=== PATIENT | female | born 1955 | race Caucasian/White ===

== ENCOUNTER 2023-11-14 11:31 | Emergency (ER) | payer MEDICARE, BC, SELFPAY ==
[2023-11-14 11:35] VITALS: BP 188/99
[2023-11-14 14:43] VITALS: BP 161/110
[2023-11-14 14:57] VITALS: BP 177/97
--- NOTE | 2023-11-14 15:04 | ED.GENMED ---
History of Present Illness
General
Chief Complaint: Blood Pressure Problem
Source: patient
Exam Limitations: none
Time Seen by Provider: 11/14/23 14:52
Nursing documentation reviewed up to this point in time: agreed with
Travel History
Have you had any contact with someone who has COVID-19?: No
Do you have any symptoms of coronavirus? Fever > 100 degrees, chills, cough, shortness of breath, sore throat, loss of taste or smell, muscle aches, or headache?: No
History of Present Illness
History of Present Illness:
Patient to ED for BP evlauation. She has a history of hypertension, takes Lisinopril 20mg daily and reports compliance. Over the past week she has been waking with a mild headache. She was seen by PCP last week and reports BP was elevated then.
Yesterday she felt woozy and took her BP. States its was 160/80or 90. She was seen by PCP again today. BP 190/90. Advised to come to ED for eval. She denies any dizziness or blurred vision. No cp/pressure, SOB. No recent illness. Brought
self to ED for eval.
Past History
Past History
ED Past Medical History: Cancer (breast - chemo/radiation), HTN, Hypercholesterolemia and Psychiatric (anxiety)
ED Past Surgical History: Other (lumpectomy,, mastectomy)
Social History
Tobacco: Non-smoker
Alcohol: Daily (1-2 beers)
Drug: None
Review of Systems
Review of Systems
Allergies reviewed?: Yes
All Other Systems: ROS reviewed and negative except as documented in HPI and ROS
Constitutional: Reports no symptoms
EENT: Reports no symptoms
Respiratory: Reports no symptoms
Cardiac: Reports no symptoms
ABD/GI: Reports no symptoms
: Reports no symptoms
Musculoskeletal: Reports no symptoms
Skin: Reports no symptoms
Neurological: Reports headache (daily morning CRISTINA)
Psychiatric: Reports no symptoms
Phy Exam
General Physical Exam
General Presentation: well appearing and no apparent distress
General age: appears stated age
General Skin: warm and dry
General Habitus: normal
General Mental: alert
Cardiovascular Exam
Cardiovascular Exam: regular rate/rhythm and no edema
Pulmonary Exam
Pulmonary Exam: lungs clear and no respiratory distress
Musculoskeletal Exam
Musculoskeletal Exam: full ROM and neuro vasc intact
Skin Exam
Skin Exam: normal color, warm/dry and no rash
Psychiatric Exam
Psychiatric Exam: normal mood/affect
Course
Orders/Labs/Results
Orders:
Orders
11/14/23 11:37
Electrocardiogram (*1) Urgent
Reason for Study: Hypertension, Benign
11/14/23 11:38
EKG- Treatment ONCE
11/14/23 15:17
Complete Blood Count/With Diff Urgent
Comprehensive Metabolic Panel Urgent
11/14/23 15:56
Lisinopril [Zestril] 20 mg PO NOW STA
Abnormal Lab Results
11/14/23
15:17
Hgb 11.8 L g/dL
(12.0-16.0)
MCH 25.4 L pg
(27.0-31.0)
MCHC 31.3 L g/dL
(33.0-37.0)
RDW 15.9 H %
(11.5-14.5)
MPV 10.8 H fL
(7.4-10.4)
Abs Immat Gran (auto) 0.1 H 10^3/uL
(0-0.05)
Absolute Monos (auto) 0.7 H 10^3/uL
(0.1-0.6)
Immature Gran % 1.0 H %
(0-0.5)
Monocytes % 13.4 H %
(1.7-9.3)
Alkaline Phosphatase 131 H U/L
(38-126)
11/14/23 15:17
11/14/23 15:17
Vital Signs
Initial and Last Documented VS:
Initial Vital Signs
Temp Pulse Resp BP Pulse Ox
98.0 F 62 16 188/99 98
11/14/23 11:35 11/14/23 11:35 11/14/23 11:35 11/14/23 11:35 11/14/23 11:35
Last Documented Vital Signs
Temp Pulse Resp BP Pulse Ox
98.0 F 58 13 182/91 98
11/14/23 11:35 11/14/23 16:00 11/14/23 16:00 11/14/23 15:58 11/14/23 14:57
*EKG
Interpretation: normal
Comparison EKG: no comparison EKG present
Rate: normal
Rhythm: sinus
*Critical Care Note
Total Time (30-74mins, 75-104mins- exclusive of procedures): Not Applicable
Update Note
Update Note:
EKG, labs reviewed. BP continues to remain moderately elevated in ED. No associated symptoms while in dept. Given additional 20mg of lisinopril in dept. Will increase daily dose to 40mg starting tomorrow. She will continue to log her BP, given
parameters to hold increased dose and she is agreeable to plan.
ED Attending Note
-
Portions of this chart may have been created with voice recognition software.� Occasional wrong word or��sound alike� substitutions may have occurred due to the inherent limitations of voice recognition software.
Discharge Plan
Departure
Patient Disposition: Home (Routine Discharge)
Date of Disposition: 11/14/23
Time of Disposition: 16:01
Patient with high blood pressure during this ER visit?: No
Condition: Good
Covid-19: Not Applicable
Discharge Problem:
Elevated blood pressure reading
Instructions: High Blood Pressure (DC)
Prescriptions:
New
lisinopril 40 mg tablet
40 mg PO DAILY Qty: 30 0RF
Referrals:
Marisol Lay DO [Family Provider] - Follow up in 2-3 days
Interventions
Interventions:
*Risk Screen - Suicide Last Done: 11/14/23 14:40
*General Assessment Last Done: 11/14/23 14:40
*Neglect/Abuse Screening Last Done: 11/14/23 14:40
ED- Fall Risk Assessment Last Done: 11/14/23 14:19
*ED COVID-19 Vaccine History Last Done: 11/14/23 11:35
ED- Cardiac Assessment Last Done: 11/14/23 14:40
ED- Neurological Assessment Last Done: 11/14/23 14:40
ED- Pulmonary Assessment Last Done: 11/14/23 14:19
Discharge Date and Time
Print Language: TURKMEN
[2023-11-14 15:23] VITALS: BP 174/90
[2023-11-14 15:35] LABS: % Eosinophils 3.5 % (0-6); % Lymphocytes 30.8 % (20.5-51.1); % Monocytes 13.4 % (1.7-9.3); % Neutrophils 50.3 % (42.2-75.2); Absolute Basophils 0.1 10^3/uL (0-0.2); Absolute Eosinophils 0.2 10^3/uL (0-0.7); Absolute Immature Granulocytes 0.1 10^3/uL (0-0.05); Absolute Lymphocytes 1.5 10^3/uL (1.2-3.4); Absolute Monocytes 0.7 10^3/uL (0.1-0.6); Absolute Neutrophils 2.5 10^3/uL (1.4-6.5); Hematocrit 37.7 % (37.0-47.0); Hemoglobin 11.8 g/dL (12.0-16.0); Mean Corp Hgb Conc. 31.3 g/dL (33.0-37.0); Mean Corpuscular Hgb 25.4 pg (27.0-31.0); Mean Corpuscular Volume 81.3 fL (81.0-99.0); Mean Platelet Volume 10.8 fL (7.4-10.4); Nucleated Red Blood Cells % 0 %; Platelet Count 266 10^3/uL (130-400); Red Blood Cell Count 4.64 10^6/uL (4.20-5.40); Red Cell Dist. Width 15.9 % (11.5-14.5); White Blood Cell Count 4.9 10^3/uL (4.8-10.8)
[2023-11-14 15:46] LABS: ALT (SGPT) 22 U/L (0-35); AST (SGOT) 24 U/L (14-36); Albumin 4.2 g/dl (3.5-5.0); Alkaline Phosphatase 131 U/L (38-126); Blood Urea Nitrogen 15 mg/dl (7-17); Calcium 9.3 mg/dl (8.4-10.2); Carbon Dioxide 29 mmol/L (22-30); Chloride 101 mmol/L (98-107); Glucose 83 mg/dl (70-99); Potassium 4.2 mmol/L (3.5-5.1); Sodium 138 mmol/L (135-145); Total Bilirubin 0.3 mg/dl (0.2-1.3); eGFR > 60.00
[2023-11-14 15:58] VITALS: BP 182/91
[2023-11-14] MEDS: ZESTRIL 20 MG PO (15:59)
== END 2023-11-14 16:12 | disposition home or self-care (01) ==
LOC: EMR 11:31
PROVIDERS: Emergency Medicine; EMERGENCY PHYSICIAN Emergency Medicine; FAMILY PHYSICIAN Family Medicine
DX: I10 Essential (primary) hypertension (principal)
CPT/HCPCS: 99284; 80053; 85025; 93005

== ENCOUNTER → 2024-05-07 14:37 | Outpatient (REF) | payer MEDICARE, BC, SELFPAY | LOC: MRI 3T 14:37 | PROVIDERS: ATTENDING PHYSICIAN Surgery; FAMILY PHYSICIAN Family Medicine | DX: C50.912 Malignant neoplasm of unspecified site of left female breast (principal); N64.4 Mastodynia | CPT/HCPCS: 77049; A9585 ==

== ENCOUNTER 2024-08-19 11:35 | Emergency (ER) | payer MEDICARE, BC, SELFPAY ==
[2024-08-19 11:36] VITALS: BP 120/79
[2024-08-19 12:05] VITALS: BP 130/87; BMI 21.8
--- NOTE | 2024-08-19 12:06 | EDRN ---
Oleg DUMONT in room w/ pt at this time.
--- NOTE | 2024-08-19 12:22 | ED.GENMED ---
History of Present Illness
General
Chief Complaint: Musculo-Skeletal Complaint
Source: patient
Exam Limitations: none
Time Seen by Provider: 08/19/24 11:53
Nursing documentation reviewed up to this point in time: agreed with
History of Present Illness
History of Present Illness:
pt is a 69 y/o F h/o R ambrocio dominance
h/o HTN, HHYPOTHYROID, TIA, BREAST CA
mechanical trip and fall 4 days ago down about 2 steps and injured R thumb and struck L eye. pt had no LOC
she says she only has pain in the R thumb region
no wrist pain, forearm pain
denies headache, confusion, neck pain
denies that she was intoxicated
denies that she was assaulted
here for xray after talking to PCP
Past History
Past History
ED Past Medical History: Cancer (breast - chemo/radiation), HTN, Hypercholesterolemia and Psychiatric (anxiety)
ED Past Surgical History: Other (lumpectomy,, mastectomy)
Social History
Tobacco: Non-smoker
Alcohol: Daily (1-2 beers)
Drug: None
Review of Systems
Review of Systems
Allergies reviewed?: Yes
All Other Systems: Not applicable
Phy Exam
Physical Exam
Physical Exam:
GENERAL: Alert , in no apparent distress, comfortable at rest
HEAD: NCAT
face: ecechymois L periorbital region
nontender
CV: 2+ radial pulse
NEUROLOGICAL: Alert and oriented, no focal neuro deficits, , 5/5 strength, sensation intact, ambulation slight limp right leg
SKIN: Warm and dry, bruising L superior orbit and upper eyelid; no swelling
MUSCULOSKELETAL: swelling to entire R hand
tender R IPJ
painful abudcution and adduction
no wrist tendrness
no snuff box tenderness
PSYCH: Normal and appropriate interaction.
Course
Orders/Labs/Results
Orders:
Orders
08/19/24 11:44
Thumb/Finger 2 View Rt [CR Finger(s)/thumb Min 2 Vw Rt] Urgent
Comment:
Reason For Exam: pain and swelling after a fall
Indicate Which Finger:: Thumb
Vital Signs
Initial and Last Documented VS:
Initial Vital Signs
Temp Pulse Resp BP
36.7 C 78 17 120/79
08/19/24 11:36 08/19/24 11:36 08/19/24 11:36 08/19/24 11:36
Last Documented Vital Signs
Temp Pulse Resp BP Pulse Ox
36.7 C 74 16 130/87 100
08/19/24 11:36 08/19/24 12:05 08/19/24 12:05 08/19/24 12:05 08/19/24 12:05
MDM/Problems Addressed
Differential Diagnosis Includes:
thumb sprain, frature
MDM/Problems Addressed:
69-year-old female who had a mechanical fall down 2 steps landing with her right hand outstretched and also struck her face here with bruising to her left eye which is not painful but pain and swelling to her right base of her thumb. Patient denies
that she was assaulted and denies alcohol use or intoxication during the fall however in the past she has been known to drink daily. Patient says this happened several days ago. She has no headache or concussive symptoms. She is not on any
anticoagulation. Her x-ray was independently reviewed by me which shows an irregular osseous abnormality at the base of the thumb which could be an avulsion fracture. Likely the patient has a ligamentous injury. She was placed in a tellez thumb spica
splint and will be instructed follow-up with hand surgery
*Critical Care Note
Total Time (30-74mins, 75-104mins- exclusive of procedures): Not Applicable
ED Attending Note
-
Portions of this chart may have been created with voice recognition software.� Occasional wrong word or��sound alike� substitutions may have occurred due to the inherent limitations of voice recognition software.
Discharge Plan
Departure
Patient Disposition: Home (Routine Discharge)
Date of Disposition: 08/19/24
Time of Disposition: 12:49
Patient with high blood pressure during this ER visit?: No
Condition: Fair
Covid-19: Not Applicable
Discharge Problem:
Sprain of hand, thumb, right, Avulsion fracture
Instructions: Sprained Thumb (DC)
Prescriptions:
No Action
lisinopril 40 mg tablet
40 mg PO DAILY Qty: 30 0RF
Referrals:
Segun Noguera MD [Active] - Follow up in 5-7 days
Marisol Lay DO [Family Provider] -
Activity Restrictions/Additional Instructions:
Your thumb is likely sprained, one of the ligaments may have pulled a piece of bone off. You will need to follow-up with an orthopedist in the next week or 2. Wear the splint most of the time, you can take it off just to shower and then replace
it. It is very important that you follow-up. Take Tylenol as needed for pain. Ice off-and-on.
Interventions
Interventions:
*Risk Screen - Suicide Last Done: 08/19/24 12:05
*General Assessment Last Done: 08/19/24 12:05
*Neglect/Abuse Screening Last Done: 08/19/24 12:05
ED- Fall Risk Assessment Last Done: 08/19/24 12:05
*ED COVID-19 Vaccine History Last Done: 08/19/24 12:05
*Nursing Disposition Last Done: 08/19/24 13:09
ED-Musculoskeletal Assessment Last Done: 08/19/24 12:05
Discharge Date and Time
Discharge Date/Time: 08/19/24 13:09
Print Language: GERMAN
== END 2024-08-19 13:09 | disposition home or self-care (01) ==
LOC: EMR 11:35
PROVIDERS: EMERGENCY PHYSICIAN Student in an Organized Health Care Education/Training Program; FAMILY PHYSICIAN Family Medicine
DX: S62.501A Fracture of unspecified phalanx of right thumb, initial encounter for closed fracture (principal); S63.601A Unspecified sprain of right thumb, initial encounter; S00.12XA Contusion of left eyelid and periocular area, initial encounter; W10.9XXA Fall (on) (from) unspecified stairs and steps, initial encounter; I10 Essential (primary) hypertension; E78.00 Pure hypercholesterolemia, unspecified; F41.9 Anxiety disorder, unspecified; F32.A Depression, unspecified; K21.9 Gastro-esophageal reflux disease without esophagitis; E03.9 Hypothyroidism, unspecified; Z87.01 Personal history of pneumonia (recurrent); Z85.3 Personal history of malignant neoplasm of breast; Z92.3 Personal history of irradiation; Z92.21 Personal history of antineoplastic chemotherapy; Z86.73 Personal history of transient ischemic attack (TIA), and cerebral infarction without residual deficits; Z90.12 Acquired absence of left breast and nipple
CPT/HCPCS: 99283; 29125; 73140

== ENCOUNTER → 2024-09-05 11:57 | Outpatient (REF) | payer MEDICARE, BC, SELFPAY | LOC: HWRAD 11:57 | PROVIDERS: ATTENDING PHYSICIAN Family Medicine | DX: R05.2 Subacute cough (principal) | CPT/HCPCS: 71046 ==

== ENCOUNTER 2024-09-27 12:52 | Emergency (ER) | payer MEDICARE, BC, SELFPAY ==
[2024-09-27 12:59] VITALS: BP 142/86
--- NOTE | 2024-09-27 13:07 | ED.GENMED ---
ED Provider Triage
<Jaylin Roblero PA-C - Last Filed: 09/27/24 13:08>
-
Patient seen by provider in Triage?: Seen in Triage
69-year-old female sent over from her pulmonology office for a workup for ongoing stridor and wheezing over the last several weeks. Patient has had apparently several rounds of steroids but still has inspiratory stridor and some wheezing. This all
started after bronchitis. Patient does not currently smoke. She has no known malignancy.
A medical screening examination has been initiated by a qualified medical provider. Based on the assessment performed at this time, it has been determined that an emergent medical condition may exist and the patient has been informed that further
medical evaluation and possible additional diagnostic testing may be needed.
HPI: This is a medical evaluation conducted in person to initiate diagnostic evaluation and provide initial therapeutics. Please see further documentation by the treating clinician.
GENERAL: Alert , in no apparent distress
Inspiratory stridor heard but otherwise no respiratory distress
ENT: No visible abnormalities
LUNGS: No acute respiratory distress and expiratory wheezing
NEUROLOGICAL: Alert and oriented
SKIN: Skin intact. No visible changes.
MUSCULOSKELETAL: Moving extremities normally
PSYCH: Normal and appropriate interaction.
69-year-old female sent over from pulmonology office for workup for a cause for her stridor after bronchitis. Patient can pass liquids and speak clearly but she does have some very faint stridor when she takes a deep breath. The route relief driver is
suspicious for vocal cord paralysis or some other cause. Will evaluate with labs and CT of her neck and chest to evaluate for
History of Present Illness
<Jaylin Roblero PA-C - Last Filed: 09/27/24 13:08>
General
Chief Complaint: Breathing Problem
Time Seen by Provider: 09/27/24 18:43
<Ketty Moore PA-C - Last Filed: 09/28/24 01:35>
General
Source: patient
Exam Limitations: none
Nursing documentation reviewed up to this point in time: agreed with
History of Present Illness
History of Present Illness:
69-year-old female with past medical history of CVA, hypertension, hypothyroidism who presents emergency department today with concerns of inspiratory stridor shortness of breath for the past 8 weeks. Patient reports that this all started when she
had an episode of acute bronchitis. She was treated with steroids by her primary care provider and felt she was not getting better. She states that she will talk on the phone with her friends and she will have to hang up because she gets so
fatigued and short of breath with talking. She also reports that she wake up in the middle the night having some trouble breathing. She also notes a hoarseness to her voice. She went to see pulmonology who she saw today for the first time in the
office. She was sent to the emergency department by Dr. Joel to get a CAT scan of the chest and neck. He is concerned about potential vocal cord paralysis. She denies chest pain, lower extremity swelling or edema, recent hospitalizations.
Past History
<Jaylin Roblero PA-C - Last Filed: 09/27/24 13:08>
Past History
ED Past Medical History: Cancer (breast - chemo/radiation), HTN, Hypercholesterolemia and Psychiatric (anxiety)
ED Past Surgical History: Other (lumpectomy,, mastectomy)
Social History
Tobacco: Non-smoker
Alcohol: Daily (1-2 beers)
Drug: None
Review of Systems
<Ketty Moore PA-C - Last Filed: 09/28/24 01:35>
Review of Systems
All Other Systems: ROS reviewed and negative except as documented in HPI and ROS
Phy Exam
<Ketty Moore PA-C - Last Filed: 09/28/24 01:35>
Physical Exam
Physical Exam:
General: Patient is well appearing and in no acute distress; non-toxic
Skin: Warm and dry, no rashes or lesions
Head: Normocephalic, atraumatic
Eyes: Sclera non-icteric. EOMs intact.
Cardiac: Regular rate and rhythm, no murmurs
Peripheral Vascular: No lower extremity swelling or edema
Pulm: Regular respiratory rate, mild inspiratory stridor hoarseness to the voice noted, some conversational dyspnea noted, no wheezes, rales, rhonchi
Neuro: CN II-XII intact, no focal neurologic deficits.
Psychiatric: Appropriate mood and affect.
Scores
<Ketty Moore PA-C - Last Filed: 09/28/24 01:35>
Heart Failure Risk
Heart Failure Risk Score: Not Applicable
Course
<Jaylin Roblero PA-C - Last Filed: 09/27/24 13:08>
Orders/Labs/Results
Orders:
Orders
09/27/24 13:05
CT Chest With Iv Contrast Urgent
Comment:
Reason For Exam: STRIDOR, WHEEZING FOR A FEW WEEKS
CT Neck With Iv Contrast Urgent
Comment:
Reason For Exam: STRIDOR FOR A FEW WEEKS
09/27/24 13:11
Complete Blood Count/With Diff Urgent
Comprehensive Metabolic Panel Urgent
NT-proBNP Urgent
PTT Urgent
Prothrombin Time Urgent
09/27/24 19:32
Famotidine [Pepcid] 40 mg PO NOW STA
Abnormal Lab Results
09/27/24
13:11
MCHC 32.8 L g/dL
(33.0-37.0)
Abs Immat Gran (auto) 0.2 H 10^3/uL
(0-0.05)
Absolute Monos (auto) 0.8 H 10^3/uL
(0.1-0.6)
Immature Gran % 2.3 H %
(0-0.5)
Lymphocytes % 19.9 L %
(20.5-51.1)
Monocytes % 10.9 H %
(1.7-9.3)
Glucose 148 H mg/dl
(70-99)
09/27/24 13:11
09/27/24 13:11
Vital Signs
Initial and Last Documented VS:
Initial Vital Signs
Temp Pulse Resp BP Pulse Ox
98.1 F 75 16 142/86 99
09/27/24 12:59 09/27/24 12:59 09/27/24 12:59 09/27/24 12:59 09/27/24 12:59
Last Documented Vital Signs
Temp Pulse Resp BP Pulse Ox
98.1 F 75 20 136/68 99
09/27/24 12:59 09/27/24 19:40 09/27/24 19:40 09/27/24 19:40 09/27/24 19:40
Rahullt;Ketty Moore PA-C - Last Filed: 09/28/24 01:35>
Orders/Labs/Results
Orders:
Orders
09/27/24 13:05
CT Chest With Iv Contrast Urgent
Comment:
Reason For Exam: STRIDOR, WHEEZING FOR A FEW WEEKS
CT Neck With Iv Contrast Urgent
Comment:
Reason For Exam: STRIDOR FOR A FEW WEEKS
09/27/24 13:11
Complete Blood Count/With Diff Urgent
Comprehensive Metabolic Panel Urgent
NT-proBNP Urgent
PTT Urgent
Prothrombin Time Urgent
09/27/24 19:32
Famotidine [Pepcid] 40 mg PO NOW STA
Abnormal Lab Results
09/27/24
13:11
MCHC 32.8 L g/dL
(33.0-37.0)
Abs Immat Gran (auto) 0.2 H 10^3/uL
(0-0.05)
Absolute Monos (auto) 0.8 H 10^3/uL
(0.1-0.6)
Immature Gran % 2.3 H %
(0-0.5)
Lymphocytes % 19.9 L %
(20.5-51.1)
Monocytes % 10.9 H %
(1.7-9.3)
Glucose 148 H mg/dl
(70-99)
09/27/24 13:11
09/27/24 13:11
Vital Signs
Initial and Last Documented VS:
Initial Vital Signs
Temp Pulse Resp BP Pulse Ox
98.1 F 75 16 142/86 99
09/27/24 12:59 09/27/24 12:59 09/27/24 12:59 09/27/24 12:59 09/27/24 12:59
Last Documented Vital Signs
Temp Pulse Resp BP Pulse Ox
98.1 F 75 20 136/68 99
09/27/24 12:59 09/27/24 19:40 09/27/24 19:40 09/27/24 19:40 09/27/24 19:40
<Alie Figueroa, - Last Filed: 09/27/24 20:02>
Orders/Labs/Results
Orders:
Orders
09/27/24 13:05
CT Chest With Iv Contrast Urgent
Comment:
Reason For Exam: STRIDOR, WHEEZING FOR A FEW WEEKS
CT Neck With Iv Contrast Urgent
Comment:
Reason For Exam: STRIDOR FOR A FEW WEEKS
09/27/24 13:11
Complete Blood Count/With Diff Urgent
Comprehensive Metabolic Panel Urgent
NT-proBNP Urgent
PTT Urgent
Prothrombin Time Urgent
09/27/24 19:32
Famotidine [Pepcid] 40 mg PO NOW STA
Abnormal Lab Results
09/27/24
13:11
MCHC 32.8 L g/dL
(33.0-37.0)
Abs Immat Gran (auto) 0.2 H 10^3/uL
(0-0.05)
Absolute Monos (auto) 0.8 H 10^3/uL
(0.1-0.6)
Immature Gran % 2.3 H %
(0-0.5)
Lymphocytes % 19.9 L %
(20.5-51.1)
Monocytes % 10.9 H %
(1.7-9.3)
Glucose 148 H mg/dl
(70-99)
09/27/24 13:11
09/27/24 13:11
Vital Signs
Initial and Last Documented VS:
Initial Vital Signs
Temp Pulse Resp BP Pulse Ox
98.1 F 75 16 142/86 99
09/27/24 12:59 09/27/24 12:59 09/27/24 12:59 09/27/24 12:59 09/27/24 12:59
Last Documented Vital Signs
Temp Pulse Resp BP Pulse Ox
98.1 F 75 20 136/68 99
09/27/24 12:59 09/27/24 19:40 09/27/24 19:40 09/27/24 19:40 09/27/24 19:40
Rahullt;Ketty Moore PA-C - Last Filed: 09/28/24 01:35>
MDM/Problems Addressed
Differential Diagnosis Includes:
Pneumonia, laryngitis, bronchitis, reflux, vocal cord paralysis, neck mass
MDM/Problems Addressed:
69-year-old female presents emergency department today for concerns of persistent stridor failing steroids. She was sent by Dr. Joel for further workup. She had CAT scan of the chest which did show pulmonary nodule but was otherwise normal her
CT of the neck did not show any abnormalities with the larynx or any masses within the neck. Communicated findings back to route relief driver radio division lieutenant. Had discussion with ENT on-call as well. Since patient is stable in the emergency department and she
is not hypoxic, we do feel that patient can follow-up and get a laryngoscopy as outpatient. We did connect patient with Dr. Huerta's office who is able to get patient in for a prompt follow-up appointment tomorrow. Return precautions discussed.
Patient stable for discharge.
<Ketty Moore PA-C - Last Filed: 09/28/24 01:35>
*Pulse Oximetry
Patient hypoxic: no
*Critical Care Note
Total Time (30-74mins, 75-104mins- exclusive of procedures): Not Applicable
Data Reviewed
Review of Other/Old Records Reveals: Records (Reviewed ER physician documentation for 08/19/2024 patient seen for avulsion fracture)
Source: patient and records
ED Attending Note
<Jaylin Roblero PA-C - Last Filed: 09/27/24 13:08>
-
Portions of this chart may have been created with voice recognition software.� Occasional wrong word or��sound alike� substitutions may have occurred due to the inherent limitations of voice recognition software.
<Alie Figueroa DO - Last Filed: 09/27/24 20:02>
ED Attending Note
Patient seen and examined by attending physician: Yes
I performed the substantive portion of visit, reviewed & personally made and approve the management plan that is documented in note by myself or MANI.: Yes
I performed a history and physical exam of patient and discussed management with resident, I reviewed resident's note and agree with documented findings and plan of care.: Yes
ED Attending Note:
69-year-old female with history of high blood pressure presenting to the emergency department for concern of stridor and hoarseness to her voice. Patient reports about 8 weeks ago she was traveling, came home and had a cough. She was diagnosed
with bronchitis. She was initially on antibiotics, and has been on 3 courses of steroids, however is still having difficulty breathing, particularly conversational. She notes that she does not have any difficulty breathing when she is walking,
mostly with speaking and long conversations. She saw route relief driver today who was concerned about her symptoms, that she come to the hospital for CT of the neck and chest and potential NPL. Patient denies any difficulty breathing at rest. No
report of any fevers. Vital signs are normal, normal oxygenation.
On exam patient is resting comfortably, no respiratory distress. No significant stridor. On lung exam no focal wheezing or abnormal lung sounds. Patient does get dyspneic with conversation however. She is otherwise afebrile, nontoxic. Prior to
my assessment, patient did have laboratory analysis and CT imaging of her neck, without acute findings to explain patient's symptoms. Ultimately suspect possible vocal cord issue or laryngitis. TIM had discussed case with ENT, who notes that they
can see patient in the office tomorrow for NPL. Feel this is reasonable given patient's hemodynamic stability and stability from respiratory standpoint. Patient is in agreement with this plan. Patient will call the office in the morning. Return
precautions discussed and patient and verbalized understand
Discharge Plan
Departure
Patient Disposition: Home (Routine Discharge)
Date of Disposition: 09/27/24
Time of Disposition: 19:35
Patient with high blood pressure during this ER visit?: Yes
Condition: Good
Discharge Problem:
Inspiratory stridor, Hoarseness
Instructions: Laryngitis, Shortness of breath, BLOOD PRESSURE
Prescriptions:
No Action
lisinopril 40 mg tablet
40 mg PO DAILY Qty: 30 0RF
Referrals:
Marisol Lay DO [Family Provider] -
Tanya Huerta MD [Active] - Call in 1-3 days for appt
Activity Restrictions/Additional Instructions:
Please call the attached number to schedule an appointment with ENT. Please call the office first thing tomorrow at when the office opens at 8:30 am. Please say that the physician geological survey field assistant Hope spoke to Dr. Huerta ENT and Dr. Todd
ENT who said that you can be seen in the office tomorrow. They will give you further instruction on what time you can come in for an appointment.
PLEASE RETURN EMERGENCY DEPARTMENT SHOULD YOU DEVELOP DIZZINESS, LIGHTHEADEDNESS, CHEST PAIN, INABILITY TO BREATHE, INABILITY TO SWALLOW, FAINTING SPELLS, ANY OTHER SIGNS OR SYMPTOMS WORRISOME TO YOU.
Interventions
Interventions:
*Risk Screen - Suicide Last Done: 09/27/24 13:01
*General Assessment Last Done: 09/27/24 17:42
*Neglect/Abuse Screening Last Done: 09/27/24 13:01
*ED COVID-19 Vaccine History Last Done: 09/27/24 17:42
*Nursing Disposition Last Done: 09/27/24 19:40
ED- Cardiac Assessment Last Done: 09/27/24 17:42
ED- Pulmonary Assessment Last Done: 09/27/24 17:42
Discharge Date and Time
Discharge Date/Time: 09/27/24 19:47
Print Language: GREEK
[2024-09-27 13:27] LABS: % Basophils 0.6 % (0-2); % Eosinophils 3.2 % (0-6); % Immature Granulocytes 2.3 % (0-0.5); % Lymphocytes 19.9 % (20.5-51.1); % Monocytes 10.9 % (1.7-9.3); % Neutrophils 63.1 % (42.2-75.2); Absolute Eosinophils 0.2 10^3/uL (0-0.7); Absolute Immature Granulocytes 0.2 10^3/uL (0-0.05); Absolute Lymphocytes 1.4 10^3/uL (1.2-3.4); Absolute Monocytes 0.8 10^3/uL (0.1-0.6); Absolute Neutrophils 4.6 10^3/uL (1.4-6.5); Hematocrit 37.2 % (37.0-47.0); Hemoglobin 12.2 g/dL (12.0-16.0); Mean Corp Hgb Conc. 32.8 g/dL (33.0-37.0); Mean Corpuscular Hgb 27.7 pg (27.0-31.0); Mean Corpuscular Volume 84.4 fL (81.0-99.0); Mean Platelet Volume 10.2 fL (7.4-10.4); Nucleated Red Blood Cells % 0 %; Platelet Count 363 10^3/uL (130-400); Red Blood Cell Count 4.41 10^6/uL (4.20-5.40); Red Cell Dist. Width 13.6 % (11.5-14.5); White Blood Cell Count 7.3 10^3/uL (4.8-10.8)
[2024-09-27 13:39] LABS: APTT 27.1 Sec (23.4-35.0); INR 0.93; PT 12.9 Sec (11.4-14.6)
[2024-09-27 13:44] LABS: ALT (SGPT) 23 U/L (0-35); AST (SGOT) 24 U/L (14-36); Alkaline Phosphatase 101 U/L (38-126); Blood Urea Nitrogen 12 mg/dl (7-17); Calcium 8.9 mg/dl (8.4-10.2); Carbon Dioxide 26 mmol/L (22-30); Chloride 104 mmol/L (98-107); Glucose 148 mg/dl (70-99); Potassium 3.8 mmol/L (3.5-5.1); Sodium 138 mmol/L (135-145); Total Bilirubin 0.4 mg/dl (0.2-1.3); Total Protein 6.6 g/dl (6.3-8.2); eGFR > 60.00
[2024-09-27 13:52] LABS: NT-proBNP 485 pg/ml
[2024-09-27] MEDS: PEPCID 40 MG PO (19:39)
[2024-09-27 19:40] VITALS: BP 136/68
== END 2024-09-27 19:47 | disposition home or self-care (01) ==
LOC: EMR 12:52
PROVIDERS: Physician Assistant; EMERGENCY PHYSICIAN Student in an Organized Health Care Education/Training Program; FAMILY PHYSICIAN Family Medicine
DX: R06.1 Stridor (principal); R49.0 Dysphonia; E03.9 Hypothyroidism, unspecified; I10 Essential (primary) hypertension; E78.00 Pure hypercholesterolemia, unspecified; Z86.73 Personal history of transient ischemic attack (TIA), and cerebral infarction without residual deficits; R91.1 Solitary pulmonary nodule; Z85.3 Personal history of malignant neoplasm of breast; Z92.3 Personal history of irradiation
CPT/HCPCS: 99284; 70491; 71260; 80053; 83880; 85025; 85610; 85730; Q9967

== ENCOUNTER 2024-11-13 06:39 | Outpatient (RCR) | payer MEDICARE, BC, SELFPAY | END 2024-11-13 23:59 | disposition home or self-care (01) | LOC: RST 06:39 | PROVIDERS: ATTENDING PHYSICIAN Internal Medicine Critical Care Medicine | DX: R49.0 Dysphonia (principal); R05.3 Chronic cough | CPT/HCPCS: 92507; 92524 ==

== ENCOUNTER 2024-12-10 11:52 | Outpatient (RCR) | payer MEDICARE, BC, SELFPAY | END 2024-12-10 23:59 | disposition home or self-care (01) | LOC: RST 11:52 | PROVIDERS: ATTENDING PHYSICIAN Internal Medicine Critical Care Medicine | DX: R49.0 Dysphonia (principal); R05.3 Chronic cough | CPT/HCPCS: 92507 ==

== ENCOUNTER → 2024-12-21 09:10 | Outpatient (REF) | payer MEDICARE, BC, SELFPAY | LOC: RAD 09:10 | PROVIDERS: ATTENDING PHYSICIAN Otolaryngology; FAMILY PHYSICIAN Family Medicine | DX: K21.9 Gastro-esophageal reflux disease without esophagitis (principal) | CPT/HCPCS: 74221 ==

== ENCOUNTER → 2025-01-08 11:44 | Outpatient (REF) | payer MEDICARE, BC, SELFPAY | LOC: HWRAD 11:44 | PROVIDERS: ATTENDING PHYSICIAN Family Medicine | DX: M79.641 Pain in right hand (principal); M79.642 Pain in left hand; M25.531 Pain in right wrist | CPT/HCPCS: 73110; 73130 ==

== ENCOUNTER → 2025-01-28 10:58 | Outpatient (REF) | payer MEDICARE, BC, SELFPAY | LOC: HWRCS 10:58 | PROVIDERS: ATTENDING PHYSICIAN Internal Medicine; FAMILY PHYSICIAN Family Medicine | DX: I34.81 Nonrheumatic mitral (valve) annulus calcification (principal); I34.0 Nonrheumatic mitral (valve) insufficiency; M34.9 Systemic sclerosis, unspecified; R00.1 Bradycardia, unspecified; I34.2 Nonrheumatic mitral (valve) stenosis | CPT/HCPCS: 93306 ==

== ENCOUNTER → 2025-03-07 11:47 | Outpatient (REF) | payer MEDICARE, BC, SELFPAY | LOC: RAD 11:47 | PROVIDERS: ATTENDING PHYSICIAN Family Medicine | DX: S69.92XA Unspecified injury of left wrist, hand and finger(s), initial encounter (principal) | CPT/HCPCS: 73130 ==

== ENCOUNTER → 2025-05-07 08:18 | Outpatient (REF) | payer MEDICARE, BC, SELFPAY | LOC: RSP 08:18 | PROVIDERS: ATTENDING PHYSICIAN Internal Medicine Rheumatology; FAMILY PHYSICIAN Family Medicine | DX: M34.9 Systemic sclerosis, unspecified (principal); R94.2 Abnormal results of pulmonary function studies; I27.20 Pulmonary hypertension, unspecified | CPT/HCPCS: 94060; 94727; 94729; 94799 ==

== ENCOUNTER → 2025-05-17 13:07 | Outpatient (REF) | payer MEDICARE, BC, SELFPAY | LOC: HWRCS 13:07 | PROVIDERS: ATTENDING PHYSICIAN Internal Medicine Rheumatology; FAMILY PHYSICIAN Family Medicine | DX: M34.9 Systemic sclerosis, unspecified (principal); R94.2 Abnormal results of pulmonary function studies; I27.20 Pulmonary hypertension, unspecified | CPT/HCPCS: 93306 ==

== ENCOUNTER → 2025-06-06 13:48 | Outpatient (REF) | payer MEDICARE, BC, SELFPAY | LOC: WDC 13:48 | PROVIDERS: ATTENDING PHYSICIAN Surgery; FAMILY PHYSICIAN Family Medicine | DX: R92.8 Other abnormal and inconclusive findings on diagnostic imaging of breast (principal) | CPT/HCPCS: 76642 ==